=== PATIENT | male | born 1960 | race African-American/Black ===

== ENCOUNTER → 2016-05-17 | Outpatient (CLI) | payer MEDICAID ==
[2016-05-17 14:47] LABS: ABSOLUTE EOSINOPHILS # (AUTO) 0.1 10^3/uL (0.0-0.6); ABSOLUTE MONOCYTES (AUTO) 0.6 10^3/uL (0.1-1.4); ABSOLUTE NEUT (AUTO) 3.9 10^3/uL (1.7-8.2); BASOPHILS % (AUTO) 0.4 % (0-2); EOSINOPHILS % (AUTO) 0.8 % (0-6); HEMATOCRIT 43.3 % (37.9-51.0); HEMOGLOBIN 14.9 g/dL (13.5-17.0); HGB HCT DIFFERENCE 1.4; LYMPHOCYTES % (AUTO) 29.9 % (13-45); MEAN CORPUSCULAR HEMOGLOBIN 29.9 pg (27.0-33.4); MEAN CORPUSCULAR HGB CONC 34.4 g/dL (32.0-36.0); MEAN CORPUSCULAR VOLUME 87 fl (80-97); MONOCYTES % (AUTO) 9.3 % (3-13); RED BLOOD COUNT 4.99 10^6/uL (4.35-5.55); RED CELL DISTRIBUTION WIDTH 15.1 % (11.5-14.0); SEGMENTED NEUTROPHILS % (AUTO) 59.6 % (42-78); WHITE BLOOD COUNT 6.6 10^3/uL (4.0-10.5)
[2016-05-17 15:04] LABS: ALANINE AMINOTRANSFERASE 31 U/L (21-72); ALBUMIN 4.3 g/dL (3.5-5.0); ALKALINE PHOSPHATASE 87 U/L (38-126); ANION GAP 14 (5-19); ASPARTATE AMINO TRANSFERASE 21 U/L (17-59); BILIRUBIN,TOTAL 0.4 mg/dL (0.2-1.3); BLOOD UREA NITROGEN 12 mg/dL (7-20); CALCIUM 9.6 mg/dL (8.4-10.2); CARBON DIOXIDE 26 mmol/L (22-30); CHLORIDE 104 mmol/L (98-107); CREATININE RESULT 0.69 mg/dL (0.52-1.25); GLUCOSE 181 mg/dL (75-110); POTASSIUM 3.8 mmol/L (3.6-5.0); SODIUM 143.6 mmol/L (137-145); TOTAL PROTEIN 6.8 g/dL (6.3-8.2)
[2016-05-20 12:16] LABS: PROSTATE SPECIFIC ANTIGEN 64.3 ng/mL (0.0-4.0); PSA % FREE 3.5 % (.); PSA FREE 2.28 ng/mL
== END ==
LOC: OD 13:22
PROVIDERS: ATTEND Urology
DX: C61 Malignant neoplasm of prostate (principal); E29.1 Testicular hypofunction; N52.8 Other male erectile dysfunction; N52.9 Male erectile dysfunction, unspecified
CPT/HCPCS: 36415; 80053; 84154; 85025

== ENCOUNTER → 2016-12-20 | Outpatient (CLI) | payer MEDICAID ==
--- NOTE | 2016-12-20 11:40 | RADIOLOGY REPORT (SQ) ---
EXAM DESCRIPTION: CT ABD/PELVIS WITH IV ORAL COMPLETED DATE/TIME: 12/20/2016 10:58 am REASON FOR STUDY: PROSTATE CA (C61), ELEVATED PSA (R97.20) C61 MALIGNANT NEOPLASM OF PROSTATE COMPARISON: None. TECHNIQUE: CT scan of the abdomen and pelvis performed using helical scanning technique with dynamic intravenous contrast injection. Patient drank oral contrast. Images reviewed with lung, soft tissue , and bone windows. Reconstructed coronal and sagittal MPR images reviewed. Delayed images for evalua tion of the urinary system also acquired. All images stored on PACS. All CT scanners at this facility use dose modulation, iterative reconstruction, and/or weight based d osing when appropriate to reduce radiation dose to as low as reasonably achievable (ALARA). [facility]: Dose Right [facility]: CareDose [facility]: Dose Right [facility]: Teradose 4D [facility]: [employer] CONTRAST TYPE AND DOSE: contrast/concentration: Isovue 370.00 mg/ml; Total Contrast Delivered: 100.0 ml; Total Saline Delivered: 72.0 ml RENAL FUNCTION: Creatinine 0.7 RADIATION DOSE: Up-to-date CT equipment and radiation dose reduction techniques were employed. CTDIv ol: 26.3 - 29.4 mGy. DLP: 3062 mGy-cm.. LIMITATIONS: None. FINDINGS: LOWER CHEST: Cardiomegaly. No nodules or infiltrates. LIVER: Normal size. No masses. No dilated ducts. Diffuse fatty infiltration SPLEEN: Normal size. No focal lesions. PANCREAS: No masses. No significant calcifications. No adjacent inflammation or peripancreatic fluid collections. Pancreatic duct not dilated. GALLBLADDER: No identified stones by CT criteria. No inflammatory changes to suggest cholecystitis. ADRENAL GLANDS: No significant masses or asymmetry. RIGHT KIDNEY AND URETER: No solid masses. 1.8 cm right midpole renal cortical cyst No significant ca lcifications. No hydronephrosis or hydroureter. LEFT KIDNEY AND URETER: No solid masses. No significant calcifications. No hydronephrosis or hydr oureter. AORTA AND VESSELS: No aneurysm. No dissection. Renal arteries, SMA, celiac without stenosis. RETROPERITONEUM: Diffuse retroperitoneal adenopathy, with multiple enlarged lymph nodes throughout th e retrocrural region, para-aortic and aortocaval, and pelvic retroperitoneal spaces. The largest of these are 2 x 1.2 cm retrocrural lymph node axial image 16 2.5 x 1.5 cm right retrocrural lymph node axial image 19 2.5 x 1.7 cm right retrocrural lymph node axial image 27 2 x 1.1 cm aortocaval lymph node axial image 44 2.8 x 2.4 cm left para-aortic lymph node axial image 47 2.3 x 1.5 cm left para-aortic lymph node, 1.9 x 1.4 cm left para-aortic lymph node axial image 52 2.4 x 2 cm left external iliac lymph node axial image 69 2.5 x 1.8 cm left external iliac lymph node axial image 78 BOWEL AND PERITONEAL CAVITY: No masses or inflammatory changes. No free fluid or peritoneal masses. APPENDIX: Normal. PELVIS: No mass. No free fluid. Normal bladder. ABDOMINAL WALL: No masses. No hernias. BONES: Very dense bony sclerosis at the T8-9 and L5-S1 levels related to advanced degenerative disc c hanges. No lytic or sclerotic bony metastatic lesions. PELVIS: Adenopathy as above. Bladder and rectum unremarkable. Fullness in the right posterior pros lea extending into the seminal vesicle on axial images 80-84. OTHER: Shrapnel over the right anterior thigh at the bottom edge of the field of view IMPRESSION: Retroperitoneal adenopathy Abnormal prostate and right seminal vesicle, worrisome for tumor TECHNICAL DOCUMENTATION: JOB ID: [id number] Quality ID # [id number]: Final reports with documentation of one or more dose reduction techniques (e.g., Au tomated exposure control, adjustment of the mA and/or kV according to patient size, use of iterative reconstruction technique) 2010 [employer]- All Rights Reserved
== END ==
LOC: RAD 10:02
PROVIDERS: ATTEND Radiology Radiation Oncology
DX: C61 Malignant neoplasm of prostate (principal); R97.20 Elevated prostate specific antigen [PSA]
CPT/HCPCS: 74177

== ENCOUNTER → 2016-12-22 | Outpatient (CLI) | payer MEDICAID ==
--- NOTE | 2016-12-22 15:53 | RADIOLOGY REPORT (SQ) ---
EXAM DESCRIPTION: NM WHOLE BODY BONE SCAN COMPLETED DATE/TIME: 12/22/2016 3:13 pm REASON FOR STUDY: MAL JOSE OF PROSTATE C61 MALIGNANT NEOPLASM OF PROSTATE COMPARISON: CT of the abdomen dated 12/20/2016 RADIONUCLIDE AND DOSE: 20 millicuries Tc99m MDP. The route of agent administration: Intravenous. ADDITIONAL DRUGS AND DOSES: None. TECHNIQUE: Routine delayed images at 3 hours post radionuclide injection acquired of the bony skelet on including anterior and posterior whole-body projections and additional focused images as needed. LIMITATIONS: None. FINDINGS: BONES: There is some ill-defined increased uptake in the lower thoracic spine at T9-10. O n bone windows images of the CT degenerative disc changes and spondylosis can be seen in this area. No other abnormal skeletal uptake is appreciated. KIDNEYS: Symmetric excretion without obstruction. OTHER: No other significant finding. IMPRESSION: There is no evidence of metastatic disease to bone. COMMENT: PQRS 3570F: Current bone scan is compared with any available plain radiographs, prior bone scans, and CT/MRI. TECHNICAL DOCUMENTATION: JOB ID: [id number] 1774 [employer]- All Rights Reserved
== END ==
LOC: RAD 10:51
PROVIDERS: ATTEND Radiology Radiation Oncology
DX: C61 Malignant neoplasm of prostate (principal)
CPT/HCPCS: 78306; A9561; Q9969

== ENCOUNTER 2016-12-28 09:26 | Day surgery (SDC) | payer MEDICAID ==
[2016-12-28 10:11] LABS: HEMATOCRIT 39.9 % (37.9-51.0); HEMOGLOBIN 13.5 g/dL (13.5-17.0); HGB HCT DIFFERENCE 0.6; MEAN CORPUSCULAR HEMOGLOBIN 29.8 pg (27.0-33.4); MEAN CORPUSCULAR HGB CONC 33.8 g/dL (32.0-36.0); MEAN CORPUSCULAR VOLUME 88 fl (80-97); RED BLOOD COUNT 4.53 10^6/uL (4.35-5.55); RED CELL DISTRIBUTION WIDTH 15.7 % (11.5-14.0); WHITE BLOOD COUNT 5.4 10^3/uL (4.0-10.5)
[2016-12-28 10:22] LABS: PROTHROMBIN TIME 12.4 SEC (11.4-15.4)
[2016-12-28 10:23] LABS: PARTIAL THROMBOPLASTIN TIME 28.5 SEC (23.5-35.8)
[2016-12-28 10:25] LABS: CREATININE RESULT 0.69 mg/dL (0.52-1.25)
[2016-12-28 11:01] LABS: BLOOD UREA NITROGEN 13 mg/dL (7-20); GLUCOSE 149 mg/dL (75-110)
[2016-12-28] MEDS ORDERED: FENTANYL CITRATE INJ/PF 100 MCG/2 ML AMPUL ONE ×2 (11:33→12:07)
[2016-12-28] MEDS ORDERED: MIDAZOLAM 2 MG/2 ML INJ ONE (11:33)
[2016-12-28] MEDS ORDERED: LISINOPRIL 5 MG TABLET PO ONE (13:00)
[2016-12-28 14:22] VITALS: BP 145/92
--- NOTE | 2016-12-29 18:04 | RADIOLOGY REPORT (SQ) ---
EXAM DESCRIPTION: CT BIOPSY ABD/RETROPERIT MASS; CT NEEDLE PLACEMENT COMPLETED DATE/TIME: 12/28/2016 12:25 pm REASON FOR STUDY: MALIGNANT NEOPLASM OF PROSTATE; RETROPERITONEAL BIOPSY C61 MALIGNANT NEOPLASM OF PROSTATE R97.20 ELEVATED PROSTATE SPECIFIC ANTIGEN PSA COMPARISON: CT abdomen pelvis 12/20/2016 Bone scan 12/22/2016 TECHNIQUE: CT guided biopsy of the left para-aortic retroperitoneal lymph node performed with consci ous sedation. CT Fluoroscopy Time: [address] scanners at this facility use dose modulation, iterative reconstruction, and/or weight based d osing when appropriate to reduce radiation dose to as low as reasonably achievable (ALARA). [facility]: Dose Right [facility]: CareDose [facility]: Dose Right [facility]: Teradose 4D [facility]: [employer] RADIATION DOSE: 100mGy. FINDINGS: The procedure was discussed with the patient and the patient agreed to the procedure. Prio r to the procedure, a time out was performed to verify the patient's identity and planned procedure. IV sedation was administered and physician direction by the registered nurse using 2 milligrams of Ve rsed and 125 micrograms of fentanyl. Physiologic monitoring was provided before, during, and after se dation. The total sedation time was 48 minutes. Documentation face to face time, the performing proceduralist, spent monitoring the patient: [address] scanning was performed to localize the percutaneous site for the biopsy approach. After sterile skin prep and local lidocaine for skin and deep tissue anesthesia, a coaxial biopsy nee dle was used to obtain multiple cores of tissue. The biopsy tissue was submitted to the lab in formal in. There were no immediate complications. Pathology is positive for metastatic carcinoma. IMPRESSION: CT GUIDED BIOPSY OF THE LEFT RETROPERITONEAL PARA-AORTIC LYMPH NODE PERFORMED WITHOUT IM MEDIATE COMPLICATION. PATHOLOGY POSITIVE. IV CONSCIOUS SEDATION COMMENT: Quality ID 145: Final reports for procedures using fluoroscopy that document radiation exp osure indices, or exposure time and number of fluorographic images (if radiation exposure indices are not available) Patient medication list reviewed: Yes- Quality ID# [id number]:Eligible professional attests to documenting i n the medical record they obtained, updated, or reviewed the patient's current medications.. TECHNICAL DOCUMENTATION: JOB ID: [id number] Quality ID# [id number]: Final reports with documentation of one or more dose reduction techniques (e.g., Aut omated exposure control, adjustment of the mA and/or kV according to patient size, use of iterative r econstruction technique) 2010 [employer]- All Rights Reserved
--- NOTE | 2016-12-29 18:04 | RADIOLOGY REPORT (SQ) ---
EXAM DESCRIPTION: CT BIOPSY ABD/RETROPERIT MASS; CT NEEDLE PLACEMENT COMPLETED DATE/TIME: 12/28/2016 12:25 pm REASON FOR STUDY: MALIGNANT NEOPLASM OF PROSTATE; RETROPERITONEAL BIOPSY C61 MALIGNANT NEOPLASM OF PROSTATE R97.20 ELEVATED PROSTATE SPECIFIC ANTIGEN PSA COMPARISON: CT abdomen pelvis 12/20/2016 Bone scan 12/22/2016 TECHNIQUE: CT guided biopsy of the left para-aortic retroperitoneal lymph node performed with consci ous sedation. CT Fluoroscopy Time: [address] scanners at this facility use dose modulation, iterative reconstruction, and/or weight based d osing when appropriate to reduce radiation dose to as low as reasonably achievable (ALARA). [facility]: Dose Right [facility]: CareDose [facility]: Dose Right [facility]: Teradose 4D [facility]: [employer] RADIATION DOSE: 100mGy. FINDINGS: The procedure was discussed with the patient and the patient agreed to the procedure. Prio r to the procedure, a time out was performed to verify the patient's identity and planned procedure. IV sedation was administered and physician direction by the registered nurse using 2 milligrams of Ve rsed and 125 micrograms of fentanyl. Physiologic monitoring was provided before, during, and after se dation. The total sedation time was 48 minutes. Documentation face to face time, the performing proceduralist, spent monitoring the patient: [address] scanning was performed to localize the percutaneous site for the biopsy approach. After sterile skin prep and local lidocaine for skin and deep tissue anesthesia, a coaxial biopsy nee dle was used to obtain multiple cores of tissue. The biopsy tissue was submitted to the lab in formal in. There were no immediate complications. Pathology is positive for metastatic carcinoma. IMPRESSION: CT GUIDED BIOPSY OF THE LEFT RETROPERITONEAL PARA-AORTIC LYMPH NODE PERFORMED WITHOUT IM MEDIATE COMPLICATION. PATHOLOGY POSITIVE. IV CONSCIOUS SEDATION COMMENT: Quality ID 145: Final reports for procedures using fluoroscopy that document radiation exp osure indices, or exposure time and number of fluorographic images (if radiation exposure indices are not available) Patient medication list reviewed: Yes- Quality ID# [id number]:Eligible professional attests to documenting i n the medical record they obtained, updated, or reviewed the patient's current medications.. TECHNICAL DOCUMENTATION: JOB ID: [id number] Quality ID# [id number]: Final reports with documentation of one or more dose reduction techniques (e.g., Aut omated exposure control, adjustment of the mA and/or kV according to patient size, use of iterative r econstruction technique) 2010 [employer]- All Rights Reserved
== END 2016-12-28 14:25 | disposition home or self-care (01) ==
LOC: RAD 09:26
PROVIDERS: ATTEND Nuclear Medicine
PROC: 07BD3ZX Excision of Aortic Lymphatic, Percutaneous Approach, Diagnostic (ICD-10-PCS; principal; 2016-12-28)
DX: C61 Malignant neoplasm of prostate (principal); R97.20 Elevated prostate specific antigen [PSA]; F17.210 Nicotine dependence, cigarettes, uncomplicated; R59.9 Enlarged lymph nodes, unspecified
CPT/HCPCS: 36415; 84520; 82565; 82947; 85027; 85610; 85730; 88342 ×2; 88341 ×2; 88344 ×2; 88305 ×2; 77012; 49180; J2250; J3010; J3490

== ENCOUNTER 2017-01-30 18:57 | Emergency (ER) | payer MEDICAID ==
[2017-01-30] MEDS ORDERED: ACETAMINOPHEN 325 MG TABLET PO ONE (19:39)
[2017-01-30] MEDS ORDERED: ACETAMINOPHEN 325 MG TABLET ONE (19:44)
[2017-01-30] MEDS ORDERED: PIPERACILLIN/TAZOBACTAM 4.5 GM VIAL IV ONE (20:03)
[2017-01-30] MEDS ORDERED: VANCOMYCIN HCL INJ 1000 MG VIAL IV ONE (20:03)
[2017-01-30] MEDS ORDERED: NORMAL SALINE 1000 ML 1,000 ML IV ONE (20:03)
--- NOTE | 2017-01-30 20:06 | ER Document Report ---
ED Medical Screen (RME) - General Chief Complaint: Penile Bleeding Stated Complaint: PENILE BLEEDING Time Seen by Provider: 01/30/17 20:03 Notes: Patient states that the pain is injected for erections. He states he has had an erection since . He was seen at Dr. Sy office today. Dr. Garcia tried to drain some blood from his penis but was unsuccessful. Patient has a fever at triage but states that he is unaware that he has been febrile. He denies any cough or cold symptoms. No vomiting or diarrhea. TRAVEL OUTSIDE OF THE [place] IN LAST 30 DAYS: No - Related Data Allergies/Adverse Reactions: No Known Allergies Allergy (Verified 01/30/17 19:37) Past Medical History - Social History Chew tobacco use (# tins/day): No Frequency of alcohol use: None Drug Abuse: None - Past Medical History Cardiac Medical History: Reports: Hx Hypercholesterolemia, Hx Hypertension Denies: Hx Coronary Artery Disease, Hx Heart Attack Pulmonary Medical History: Denies: Hx Asthma, Hx Bronchitis, Hx COPD, Hx Pneumonia Neurological Medical History: Denies: Hx Cerebrovascular Accident, Hx Seizures Endocrine Medical History: Reports: Hx Diabetes Mellitus Type 2 Renal/ Medical History: Denies: Hx Peritoneal Dialysis Musculoskeltal Medical History: Denies Hx Arthritis Surgical Hx: Negative - Immunizations Hx Diphtheria, Pertussis, Tetanus Vaccination: Yes Physical Exam - Vital signs Vitals: Temp Pulse Resp BP Pulse Ox 103.1 F H 109 H 28 H 118/70 93 01/30/17 19:50 01/30/17 19:50 01/30/17 19:50 01/30/17 19:50 01/30/17 19:50 Course - Vital Signs Vital signs: Temp Pulse Resp BP Pulse Ox 103.1 F H 109 H 28 H 118/70 93 01/30/17 19:50 01/30/17 19:50 01/30/17 19:50 01/30/17 19:50 01/30/17 19:50
[2017-01-30 20:38] LABS: VENOUS BLOOD BASE EXCESS 1.6 mmol/L; VENOUS BLOOD HCO3 26.6 mmol/L (20-32); VENOUS BLOOD PCO2 43.3 mmHg (35-63); VENOUS BLOOD PH 7.41 (7.30-7.42)
[2017-01-30 20:41] LABS: HEMATOCRIT 35.5 % (37.9-51.0); HEMOGLOBIN 12.2 g/dL (13.5-17.0); HGB HCT DIFFERENCE 1.1; MEAN CORPUSCULAR HGB CONC 34.3 g/dL (32.0-36.0); MEAN CORPUSCULAR VOLUME 88 fl (80-97); RED BLOOD COUNT 4.06 10^6/uL (4.35-5.55); RED CELL DISTRIBUTION WIDTH 15.4 % (11.5-14.0); WHITE BLOOD COUNT 11.8 10^3/uL (4.0-10.5)
[2017-01-30] MEDS ORDERED: FENTANYL CITRATE INJ/PF 100 MCG/2 ML AMPUL IV ONE (20:46)
--- NOTE | 2017-01-30 20:48 | ER Document Report ---
ED General - General Chief Complaint: Penile Bleeding Stated Complaint: PENILE BLEEDING Time Seen by Provider: 01/30/17 20:03 Notes: Patient is a 56-year-old male that comes emergency department for chief complaint of swelling and pain to the penis, he states that 5 days ago he had an injection placed for an erection by a pharmacist, he states that the erection did not resolve and he went to [place] emergency department, he was seen by urology and they told him it should resolve. He states that he was told they put too much in the injection. Patient states that he has continued to swell and he was seen by his urologist Dr. Sy today who placed a needle in the penis to try to draw out blood but was unable to get anything, he states he told him the blood had clotted and he told him to come to the emergency department. After arrival to the emergency department patient was found to have a fever of 103.1. Patient states he has not urinated since this morning although he states the swelling is about the same now as it was this morning. Past medical history of type 2 diabetes, hypertension, hyperlipidemia, and smoking. He denies any surgeries. TRAVEL OUTSIDE OF THE [place] IN LAST 30 DAYS: No - Related Data Allergies/Adverse Reactions: No Known Allergies Allergy (Verified 01/30/17 19:37) Past Medical History - General Information source: Patient - Social History Smoking Status: Current Every Day Smoker Chew tobacco use (# tins/day): No Frequency of alcohol use: None Drug Abuse: None Lives with: Family Family History: Reviewed & Not Pertinent Patient has suicidal ideation: No Patient has homicidal ideation: No - Past Medical History Cardiac Medical History: Reports: Hx Hypercholesterolemia, Hx Hypertension Denies: Hx Coronary Artery Disease, Hx Heart Attack Pulmonary Medical History: Denies: Hx Asthma, Hx Bronchitis, Hx COPD, Hx Pneumonia Neurological Medical History: Denies: Hx Cerebrovascular Accident, Hx Seizures Endocrine Medical History: Reports: Hx Diabetes Mellitus Type 2 Renal/ Medical History: Denies: Hx Peritoneal Dialysis Malignancy Medical History: Reports Hx Prostate Cancer Musculoskeltal Medical History: Denies Hx Arthritis Surgical Hx: Negative - Immunizations Hx Diphtheria, Pertussis, Tetanus Vaccination: Yes Review of Systems - Review of Systems Constitutional: See HPI EENT: No symptoms reported Cardiovascular: No symptoms reported Respiratory: No symptoms reported Gastrointestinal: No symptoms reported Genitourinary: See HPI Male Genitourinary: No symptoms reported Musculoskeletal: No symptoms reported Skin: No symptoms reported Hematologic/Lymphatic: No symptoms reported Neurological/Psychological: No symptoms reported Physical Exam - Vital signs Vitals: Temp Pulse Resp BP Pulse Ox 103.1 F H 109 H 28 H 118/70 93 01/30/17 19:50 01/30/17 19:50 01/30/17 19:50 01/30/17 19:50 01/30/17 19:50 Interpretation: Normal - General General appearance: Alert, Anxious In distress: Mild - Patient appears mildly uncomfortable and he is generally unwell appearing - HEENT Head: Normocephalic, Atraumatic Eyes: Normal Conjunctiva: Normal Extraocular movements intact: Yes Eyelashes: Normal Pupils: PERRL Nasal: Normal Mouth/Lips: Normal Mucous membranes: Normal Pharynx: Normal Neck: Normal - Respiratory Respiratory status: No respiratory distress Chest status: Nontender Breath sounds: Normal. No: Decreased air movement, Wheezing Chest palpation: Normal - Cardiovascular Rhythm: Regular, Tachycardia Heart sounds: Normal auscultation, S1 appreciated, S2 appreciated Murmur: No - Abdominal Inspection: Normal Distension: No distension Bowel sounds: Normal Tenderness: Nontender Organomegaly: No organomegaly - Genitourinary Inspection: No: Normal - patient with priapism and what appears to be additional swelling of the penis, mild swelling of the scrotum, a small area of bleeding near the top of the shaft of the penis; no discharge, no blood at meatus. No significant tenderness, erythema, or swelling of the perineum. - Back Back: Normal, Nontender. No: Tender - Extremities General upper extremity: Normal inspection, Nontender, Normal ROM, Normal strength General lower extremity: Normal inspection, Nontender, Normal ROM, Normal strength - Neurological Neuro grossly intact: Yes Cognition: Normal Orientation: AAOx4 Garrison Coma Scale Eye Opening: Spontaneous Trinity Coma Scale Verbal: Oriented G[place] Coma Scale Motor: Obeys Commands Garrison Coma Scale Total: 15 Speech: Normal Cranial nerves: Normal Cerebellar coordination: Normal Motor strength normal: LUE, RUE, LLE, RLE Additional motor exam normals: Equal ship purser Sensory: Normal - Psychological Associated symptoms: Normal affect, Normal mood - Skin Skin Temperature: Warm Skin Moisture: Dry Skin Color: Normal Course - Re-evaluation Re-evalutation: Patient febrile, generally ill-appearing, however he is not hypotensive. He is mildly tachycardic and reports he is in pain. Priapism with swelling of the genitals with tenderness of the scrotum and the perineum with no obvious for Jagdish gangrene at this time. No induration or fluctuance, there is bleeding from the site where patient had the aspiration attempt but no purulent drainage. Giving broad-spectrum coverage with Zosyn and vancomycin. Giving fentanyl for pain. 01/30/17 20:[address] Sy, patient's urologist, reached home phone, letterset press set up operator spoke to who states she will have him call. Spoke with Dr. Sy, he states that patient was injected with a combination of phentolamine, prostaglandin, and a fast acting agent, he states that he attempted to draw out blood to decompress the priapism but was unable to, he states he believes the patient will need a shunt, possibly a suprapubic catheter , he recommends transfer to [place] because of known urology on-call in this facility at this time. He does not have hospital privileges or perform procedures anymore. He also informs me the patient has prostate cancer, has undergone radiation therapy and androgen deprivation therapy. He states that he only manages patient for his erectile dysfunction. Patient states he never got radiation therapy but is currently on chemotherapy and received a dose here in [place] 2 weeks ago. He is unable to tell me his oncologist. Discussed with Dr. Bass. 01/30/17 21:12 Called Rasheed Plasencia, pending call back. Leukocytosis at 11.6 but no bandemia. Creatinine of 1.72 which is new per old records but I do not have any recent records on the patient. Patient states he has not eaten or drank anything all day, at this time patient does not have a severely distended bladder on bedside ultrasound. 01/30/17 21:34 Spoke to GAVIN Islas, she recommend Sudafed 30 mg p.o., IV fluids, and transfer to the ED. Also recommends additional bladder scan and fluids if not significantly distended. Bladder scan showing less than 200 ml, giving additional fluids. Transfer center called and is changing from ED transfer to room transfer. EMS crew is close. 01/30/17 22:28 EMS crew has arrived to take patient. He has been given additional pain medication. He is much more comfortable, denies additional complaints. Blood pressure, heart rate unremarkable. Stable for transfer. - Vital Signs Vital signs: Temp Pulse Resp BP Pulse Ox 100.3 F 109 H 21 H 143/70 H 97 01/30/17 22:13 01/30/17 19:50 01/30/17 22:01 01/30/17 22:01 01/30/17 22:01 - Laboratory Result Diagrams: 01/30/17 20:11 01/30/17 20:11 Laboratory results interpreted by me: 01/30/17 01/30/17 20:11 20:11 WBC 11.8 H RBC 4.06 L Hgb 12.2 L Hct 35.5 L RDW 15.4 H Monocytes % (Manual) 21 H Abs Monocytes (Manual) 2.5 H Creatinine 1.72 H Est GFR ( Amer) 50 L Est GFR (Non-Af Amer) 41 L Glucose 227 H Direct Bilirubin 0.6 H AST 62 H Total Protein 8.4 H Critical Care Note - Critical Care Note Total time excluding time spent on procedures (mins): 40 - infected priapism, fever Comments: Please allow 40 minutes of critical care time for patient with infected priapism requiring IV antibiotics, symptom intervention, multiple re-evaluations , consultation with patient's urologist, discussion and transfer to tertiary care facility. Discharge - Discharge Clinical Impression: Priapism, Penile bleeding, Penile swelling Fever Qualifiers: Fever type: unspecified Qualified Code(s): R50.9 - Fever, unspecified Condition: Serious Disposition: [facility]
[2017-01-30 20:55] LABS: ALANINE AMINOTRANSFERASE 50 U/L (21-72); ALBUMIN 4.3 g/dL (3.5-5.0); ALKALINE PHOSPHATASE 110 U/L (38-126); ANION GAP 11 (5-19); ASPARTATE AMINO TRANSFERASE 62 U/L (17-59); BILIRUBIN,DIRECT 0.6 mg/dL (0.0-0.4); BILIRUBIN,TOTAL 0.9 mg/dL (0.2-1.3); BLOOD UREA NITROGEN 20 mg/dL (7-20); CALCIUM 10.2 mg/dL (8.4-10.2); CARBON DIOXIDE 26 mmol/L (22-30); CHLORIDE 100 mmol/L (98-107); CREATININE RESULT 1.72 mg/dL (0.52-1.25); GLUCOSE 227 mg/dL (75-110); POTASSIUM 4.4 mmol/L (3.6-5.0); SODIUM 137.1 mmol/L (137-145); TOTAL PROTEIN 8.4 g/dL (6.3-8.2)
[2017-01-30 20:59] LABS: BAND NEUTROPHILS % (MANUAL) 5 % (3-5); BASOPHILS % (MANUAL) 0 % (0-2); EOSINOPHILS % (MANUAL) 0 % (0-6); LYMPHOCYTES % (MANUAL) 15 % (13-45); TOTAL CELLS COUNTED 100
[2017-01-30 21:01] LABS: ANISOCYTOSIS SLIGHT; TOXIC GRANULATION SLIGHT
[2017-01-30] MEDS ORDERED: PSEUDOEPHEDRINE HCL 30 MG TABLET PO ONE (21:32)
[2017-01-30] MEDS ORDERED: HYDROMORPHONE HCL INJ/PF 2 MG/ML AMPULE IV ONE (22:13)
[2017-01-30] MEDS ORDERED: NORMAL SALINE 1000 ML 1,000 ML IV PRN (22:13)
[2017-01-30 22:33] VITALS: BP 143/70
== END 2017-01-30 22:47 | disposition short-term general hospital (02) ==
LOC: ER 18:57
DX: N48.30 Priapism, unspecified (principal); N48.89 Other specified disorders of penis; R22.9 Localized swelling, mass and lump, unspecified; R50.9 Fever, unspecified; E78.00 Pure hypercholesterolemia, unspecified; I10 Essential (primary) hypertension; E11.9 Type 2 diabetes mellitus without complications; Z85.46 Personal history of malignant neoplasm of prostate
CPT/HCPCS: 99291; 96375; 96365; 96367; 36415; 87040; 85025; 80053; 82803; 83605; J3010; J1170; J7030; J3370; J2543